=== PATIENT | female | born 1995 | race Hispanic/Latino ===

== ENCOUNTER 2020-06-22 14:58 | Emergency (ER) | payer OTHER, SELFPAY ==
[~2020-06-22 14:58] MED LIST: Iopamidol 370 76% 100 ML VIAL ONE
[2020-06-22 15:19] LABS: Hemoglobin 12.5 g/dL (12.0-16.0); Mean Corpuscular HGB CONC 33.8 g/dL (32.0-36.0); Mean Corpuscular Hemoglobin 27.2 pg (27.0-31.0); Mean Corpuscular Volume 80.6 fL (78.0-98.0); Mean Platelet Volume 9.1 fL (7.4-10.4); Platelet Count 269 thou/uL (130-400); RBC Distribution Width 13.2 % (11.5-14.5); Red Blood Cell (RBC) Count 4.61 mill/uL (4.20-5.40); White Blood Cell (WBC) Count 11.9 thou/uL (4.8-10.8)
[2020-06-22 15:31] LABS: BHCG - Serum Negative (NEGATIVE); Pregs Control Background? CLEAR/WHITE (CLR/WHITE); Pregs Control Bar Appear? YES (CONTROL BAR)
--- NOTE | 2020-06-22 15:32 | RAD ---
XR Chest 1 View Portable HISTORY: Sepsis, nausea, vomiting, diarrhea, abdominal pain COMPARISON: None FINDINGS: The heart size is normal. The lungs are well expanded without focal areas of consolidation, pneumothorax or pleural effusions. IMPRESSION: No radiographic evidence of acute cardiopulmonary process.
[2020-06-22 15:33] LABS: Band 5 % (5-11); Lymphocytes 10 % (21-51); MDiff Complete? YES; Monocytes 2 % (0-10); Neutrophil 83 % (42-75); Platelet Morphology Comment Appears Adequate; RBC Morphology Normal
[2020-06-22 15:43] LABS: ALT (SGPT) 13 U/L (8-55); AST (SGOT) 16 U/L (5-34); Alkaline Phosphatase 69 U/L (40-110); Anion Gap 11 mmol/L (10-20); BUN (Urea Nitrogen) 13 mg/dL (7.0-18.7); Bilirubin, Total 0.5 mg/dL (0.2-1.2); Calc. Creatinine Clearance 0 mL/min (70-130); Calcium 8.7 mg/dL (7.8-10.44); Carbon Dioxide 21 mmol/L (22-29); Chloride 104 mmol/L (98-107); Estimated GFR-MDRD Greater than 90; Globulin 3.6 g/dL (2.4-3.5); Glucose 120 mg/dL (70-105); Potassium 3.4 mmol/L (3.5-5.1); Protein, Total 7.6 g/dL (6.0-8.3); Sodium 133 mmol/L (136-145)
[2020-06-22] MEDS ORDERED: Acetaminophen 500 MG TAB ONE (16:01)
[2020-06-22] MEDS ORDERED: Piperacillin/Tazobactam 4.5 GM VIAL ONE (16:09)
[2020-06-22] MEDS ORDERED: Morphine 4 MG/ML VIAL ONE (16:09)
[2020-06-22] MEDS ORDERED: Ondansetron PF 4 MG/2 ML Vial ONE (16:09)
--- NOTE | 2020-06-22 16:44 | CT ---
CT abdomen and pelvis with IV contrast HISTORY: Intermittent abdomen pain. Dysuria. FINDINGS: The lung bases are clear. The liver, spleen, kidneys, adrenal glands, and pancreas have a n ormal CT appearance. Collapsed follicle of the left ovary is apparent. 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 Within the right lower quadrant, a small amount of free fl uid is present just above the level of the right adnexa and just anterior to the right common iliac vessels. There are Contiguous slightly distended fluid-filled small bowel loops without abrupt transition to decompresse d bowel. Nonenlarged, nonspecific mesenteric nodes scattered throughout the lower abdomen. No free air or free fluid. IMPRESSION : Small amount of right lower quadrant free fluid and very subtle inflammation changes of the bowel. No evidence of obstruction or focal lesion. Findings are nonspecific and may be related to enteritis.
[2020-06-22 17:01] LABS: Bilirubin Negative (Negative); Blood, Urine Negative (Negative); Clarity Clear (Clear); Glucose, Urine (Dipstick) Normal (Negative); Ketone, Urine Negative (Negative); Leukocyte Negative Leu/uL (Negative); Nitrite Negative (Negative); Protein, Urine (Dipstick) Negative (Neg-Trace); Specific Gravity, Urine 1.041 (1.002-1.036); Urobilinogen Normal mg/dL (Less than 2); pH, Urine 5.5 (5.0-9.0)
[2020-06-23 16:25] LABS: SARS-CoV-2 MS2 Positive; SARS-CoV-2 N Gene Negative; SARS-CoV-2 S Gene Negative; SARS-CoV-2 by NAA Not Detected (NotDetected); SARS-CoV-2 orf1ab Negative
== END 2020-06-22 18:37 | disposition home or self-care (01) ==
LOC: ERS 14:58
DX: K52.9 Noninfective gastroenteritis and colitis, unspecified (principal); R00.0 Tachycardia, unspecified; Z20.828 Contact with and (suspected) exposure to other viral communicable diseases
CPT/HCPCS: 71045; 74177; 80053; 81003; 83605; 83690; 84703; 85025; 87040; 87086; 87635; 87804; 93005; 96361; 96365; 96375; J2270; J2405; J2543; Q9967; U0003